=== PATIENT | male | born 2000 | race Caucasian/White ===

== ENCOUNTER 2024-11-07 15:56 | Outpatient (CLI) | payer BC, SELFPAY | END 2024-11-07 15:57 | disposition home or self-care (01) | LOC: LKVREF 15:58 | PROVIDERS: PCP Family Medicine; Visit Provider Family Medicine | DX: R74.8 Abnormal levels of other serum enzymes (principal); F90.9 Attention-deficit hyperactivity disorder, unspecified type | CPT/HCPCS: 80053; 80061 ==